=== PATIENT | male | born 1980 | race Hispanic/Latino ===

== ENCOUNTER 2016-12-12 19:41 | Emergency (ER) | payer OTHER ==
[~2016-12-12] VITALS: Ht 170.2 cm; Wt 95.5 kg
[2016-12-12 19:45] VITALS: BP 127/83; PULSE 57; RESP 16; O2SAT 98
[2016-12-12] MEDS ORDERED: TdaP Vaccine 0.5 mL Inj IM ONE (20:50)
--- NOTE | 2016-12-12 21:46 | ED.REPORT ---
HPI-General Illness Date of Service Dec 12, 2016 ED Provider: Lee Reilly PA-C [place] is otherwise healthy 36-year-old male who presents with chief complaint of laceration to his left middle finger. 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 He is unsure of his tetanus status. Denies bleeding/clotting disorders, diabetes, HIV, immunosuppression. He is right-handed Nursing Notes Stated Complaint: CUT FINGER Chief Complaint: Extremity Trauma Nursing Notes Reviewed: Yes Allergies: Coded Allergies: No Known Allergies (Unverified , 12/12/16) General Time Seen by MD: 19:58 Chief Complaint Laceration Past Medical History Past Medical History Denies Review of Systems Negative unless stated otherwise in history of present illness Physical Exam General: Well appearing, well developed, well nourished, no acute distress. Left hand, middle finger. 3 cm laceration across the distal tip. Flap appears poorly perfused. base is well visualized. 0.5 cm incursion into the nail bed that is well aligned. Full strength and range of motion at MCP and PIP and DIP joint. Head: Atraumatic, normocephalic. Eyes: No scleral icterus or injection. No discharge. Vision grossly intact. ENT: Voice clear, hearing grossly intact. Respiratory: No respiratory distress, no increased work of breathing. Speaks in complete sentences. Skin: Warm and dry. Neurological: Grossly nonfocal. Psychological: alert and oriented. Speech appropriate, linear and logical. Behavior appropriate. Vital Signs Vital Signs Date Time Temp Pulse Resp B/P Pulse Ox O2 Delivery O2 Flow Rate FiO2 12/12/16 22:06 36.5 59 16 115/79 100 Room Air 12/12/16 19:45 36.1 57 16 127/83 98 Room Air Initial VS: Vital signs normal Procedures Laceration Management Procedure Performed by: Allied health pract Consent / Setup / Site Prep: Informed consent provided, Consent from patient , Hand hygiene observed, Stand sterile technique Location of Wound: Distal phalanx left middle finger Wound Length: 3 cm Local Anesthesia: Lidocaine 1% Digital Block: Yes Digit Involved: Middle finger left Wound Preparation: Normal saline Debridement: None Irrigation: 250 cc Foreign Body Explore / Removal: Explored for foreign body Repair Skin: Nylon (5-0) # Sutures - Skin: 8 Closure Layers: 1 Suture Technique: Simple Post-Procedure / Complications: Antibiotic oint applied, Dressing applied, No complications, Condition improved, Tolerated procedure well, Patient stable Re-Eval/Medical Decision Med Decision/Clinical Course Otherwise healthy 36-year-old male with laceration of the distal phalanx of his left middle finger. No indication of immunocompromise. Patient is unsure of tetanus status. 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 History, physical and discharge instructions were provided using [employer]. Flap appears be poorly perfused and there is a roughly one half centimeter incursion into the nailbed. I discussed case with Dr. Chamorro who met with and examined the patient. We agree that the nailbed laceration appears to be quite well aligned and that removing the nail to perform definitive repair would cause more damage that is worth. Flap appears to be poorly perfused and I am concerned that it will not be viable. Irrigated with normal saline, explored for foreign bodies. Closed with 8 simple interrupted 5-0 Ethilon sutures. Patient tolerated procedure well. Dressed with antibiotic ointment, gauze and splint. Provided tetanus booster, ibuprofen, acetaminophen and a small amount of oxycodone. Provided referral for orthopedic follow-up, wound care instructions, instructions for over-the- counter analgesia, emergency return precautions. Discharge & Departure Primary Impression: Laceration of left middle finger Disposition: Home Discharge Condition All VS Reviewed: Yes Condition: Stable Patient Instructions: Suture Care (ED) Additional Instructions: Evaluation in the emergency department for a laceration. This appears to be a clean wound, with no damage to the joint capsule or tendons. I see no indication for antibiotics at this time. Since were unsure of your tetanus status, we have given you a tetanus shot. We have cleaned, sutured and dressed the wound with antibiotic ointment and gauze. Please leave this dressing on and dry for the next 24 hours. After that you can remove the dressing, clean with soap and water and then reapply antibiotic ointment and gauze or Band-Aid. Please do not submerge the wound as in washing dishes, swimming or soaking in a tub until you have the sutures removed. The pain is best treated with 400 mg of ibuprofen (Advil, Motrin) every 6 hours , or 1000 mg of acetaminophen (Tylenol) every 6 hours. These drugs can be taken at the same time for more severe pain. Be vigilant for signs of infection. While a small amount of redness, tenderness and clear or pink drainage is normal, any increasing pain, redness, swelling or the appearance of pus suggests infection. More severe infection as suggested by symptoms such as fever, chills, feeling ill, racing heart. Please return to emergency Department if you notice signs of infection. I will give you a referral for a doctor who specializes in hands. Please contact them tomorrow morning to arrange follow-up. This is important because I am concerned that the flap of skin at the end of your finger may not survive due to poor blood supply. Referrals: Renard Bishop DO EDSupervising Provider for APC: Rudolph Chamorro MD Attending Statement I personally examined this patient and agree with plan. copies to: Renard Bishop Seth PA-C Dec 12, 2016 21:46 Rudolph Chamorro MD Dec 13, 2016 00:57
[2016-12-12 22:06] VITALS: BP 115/79; PULSE 59; RESP 16; O2SAT 100
== END 2016-12-12 22:05 | disposition home or self-care (01) ==
LOC: SED 19:41
DX: S61.213A Laceration without foreign body of left middle finger without damage to nail, initial encounter (principal); W26.0XXA Contact with knife, initial encounter; Y93.G1 Activity, food preparation and clean up; Y92.511 Restaurant or cafe as the place of occurrence of the external cause; Y99.0 Civilian activity done for income or pay; Z23 Encounter for immunization

== ENCOUNTER 2016-12-14 23:06 | Emergency (ER) | payer OTHER ==
[~2016-12-14] VITALS: Ht 170.2 cm; Wt 95.5 kg
[2016-12-14 23:18] VITALS: BP 125/74; PULSE 80; RESP 16; O2SAT 100
--- NOTE | 2016-12-14 23:56 | ED.REPORT ---
HPI-Recheck W/B/S Date of Service Dec 14, 2016 ED Provider: Omar Das DO A 36 year old male with no pertinent medical history presents to the ED for a recheck of right hand sutures. The pt was seen on 12/12/2016 for a laceration of his left middle finger. Sutures were placed at that time but he was not put on antibiotics. The pt is now concerned because the tissue at the tip of his finger seems to be turning black. Nursing Notes Stated Complaint: RECHECK FINGER ON LEFT HAND Chief Complaint: Extremity Trauma Nursing Notes Reviewed: Yes Allergies: Coded Allergies: No Known Allergies (Unverified , 12/12/16) General Time Seen by Provider: 23:56 Chief Complaint Wound check Hx Obtained From: Patient Arrived By: Walk-in Onset Occurred: 3 days ago Recent Healthcare: No recent hospitalization, Recent doctor visit Similar Sx Previous: No Past Medical History Past Medical History None reported Past Surgical History none reported Smoking History Unknown if Ever Smoker Social History Other Social History: Good social support Ambulatory Status Independent Review of Systems Review of Systems Note: tip of left middle finger turning black Constitutional: Denies: Fever Complete sys rev & neg: except as marked. Respiratory: Denies: Non-productive cough GI: Denies: Abdominal pain Musculoskeletal: Denies: Back pain Physical Exam Initial Vital Signs Vital Signs (First) Date Time Temp Pulse Resp B/P Pulse Ox O2 Delivery O2 Flow Rate FiO2 12/14/16 23:18 36.5 80 16 125/74 100 Room Air Initial VS: Reviewed Skin: Color NL, Warm, Dry sutured laceration on left third digit with surrounding erythema no purulent discharge dried blood around wound no signs of digital necrosis General/Constitutional: Awake, Alert Head / Eyes: Atraumatic, Normocephalic, PERRL, EOMI ENT: Atraumatic, Airway patent, Mucous membranes moist Neck: Atraumatic, Supple, Full range of motion Respiratory / Chest: Atraumatic, No respiratory distress Cardiovascular: Heart rate NL, Regular rhythm Abdomen: Atraumatic Back: Atraumatic, Full range of motion Upper Extremity / MS: Atraumatic, Full range of motion Lower Extremity / Pelvis / MS: Atraumatic, Full range of motion Neurologic: Oriented X3, Speech NL, No motor deficits, No sensory deficits Psychiatric: Affect NL, Mood NL Interpretation & Diagnostics Pulse Oximetry Interpretation Pulse Oximetry Interpretation: 100% on room air Pulse Oximetry: Pulse Ox normal Re-Eval/Medical Decision Source of Hx: Old records Re-Evaluation/Progress : Time of Eval: 23:56 Patient Status: Condition improved Re-Evaluation/Progress Note: Pt informed of his diagnosis and the plan for discharge during the initial interview. The pt understands and agrees with the plan. All questions are addressed at this time. Counseled Regarding: Diagnosis, Need for follow-up, When/why to return to ED Discharge & Departure Impression: Primary Impression: Wound infection Disposition: Home Discharge Condition All VS Reviewed: Yes Condition: Stable Patient Instructions: Acute Wound Care (ED) Additional Instructions: Take Keflex four times daily for five days. Wear the tube gauze for 48 hours. Keep a bandage on the wound. Have a wound check this week and have the stitches taken out in one week. Call your primary care physician on Friday morning to arrange a follow up appointment next week. Return to the emergency department if you develop any new or worsening symptoms. Referrals: [facility] (PCP) Paul Attestation Portions of this note were transcribed by Maureen Rosario. I, Dr. Das personally performed the history, physical exam and medical decision-making; I reviewed and confirmed the accuracy of the information in the transcribed note. Signed by: Paul Blanchard, 12/15/16 and 0027. copies to: [facility] Todd P DO Dec 14, 2016 23:56 MAUREEN ROSARIO Dec 15, 2016 00:04
[2016-12-15 00:15] VITALS: BP 125/74; PULSE 80; RESP 16; O2SAT 100
== END 2016-12-15 00:37 | disposition home or self-care (01) ==
LOC: SED 23:06
DX: T81.4XXD Infection following a procedure, subsequent encounter (principal); X58.XXXD Exposure to other specified factors, subsequent encounter; Y93.9 Activity, unspecified; Y92.9 Unspecified place or not applicable; Y99.0 Civilian activity done for income or pay